=== PATIENT | female | born 1955 | race Caucasian/White ===

== ENCOUNTER 2018-01-09 15:34 | Inpatient (IN) | payer OTHER ==
[2018-01-09] MEDS ORDERED: NACL 0.9% 3 ML SYG IV (17:30)
[2018-01-09] MEDS ORDERED: morphine 2 MG INJ IV (17:30)
[2018-01-09] MEDS ORDERED: DOCUSATE SODIUM 100 MG CAP PO (17:30)
[2018-01-09] MEDS ORDERED: TOPIRAMATE 100 MG XX (17:30)
[2018-01-09] MEDS ORDERED: ONDANSETRON 4 MG INJ IV (17:30)
[2018-01-09] MEDS ORDERED: HYDROCODONE/APAP (5/325) TAB PO (17:30)
[2018-01-09] MEDS: INSULIN ASPART [NOVOLOG] 3 ML PEN SC (17:35)
[2018-01-09] MEDS ORDERED: DEXTROSE 50% 50 ML SYRINGE IV ×2 (18:00)
[2018-01-09] MEDS ORDERED: GLUCOSE GEL 15 GRAM TUBE PO ×2 (18:00)
[2018-01-09] MEDS ORDERED: GLUCOSE GEL 15 GRAM TUBE BUCCAL (18:00)
[2018-01-09] MEDS ORDERED: GLUCAGON 1 MG INJ IM (18:00)
[2018-01-09] MEDS: CEFTRIAXONE 1 GM/50 ML (PMX) 50 ML IVPB (18:08)
[2018-01-09] MEDS: SOD CHLORIDE 0.9% 1,000 ML IV (18:08)
[2018-01-09] MEDS: RISPERIDONE 1 MG TAB PO (20:39)
[2018-01-09] MEDS: RANITIDINE 150 MG TAB PO (20:39)
[2018-01-09] MEDS: GABAPENTIN 400 MG CAP PO (20:39)
[2018-01-09] MEDS: INSULIN GLARGINE [LANTus] (100 UNITS/ML) SYG SC (20:40)
[2018-01-09] MEDS ORDERED: GABAPENTIN 300 MG CAP PO (21:00)
[2018-01-09 22:10] LABS: ADD UMIC YES; UR ASCORBIC ACID NEGATIVE (NEGATIVE); UR BILIRUBIN (Dip) NEGATIVE (NEGATIVE); UR BLOOD (Dip) NEGATIVE (NEGATIVE); UR CLARITY CLEAR (CLEAR); UR COLOR STRAW (YELLOW); UR GLUCOSE (Dip) NEGATIVE (NEGATIVE); UR KETONES (Dip) NEGATIVE (NEGATIVE); UR LEUKOCYTE ESTERASE (Dip) TRACE Leu/ul (NEGATIVE); UR NITRITE (Dip) NEGATIVE (NEGATIVE); UR RBC 1 /HPF (0-5); UR SPECIFIC GRAVITY (Dip) 1.011 (1.003-1.030); UR TOTAL PROTEIN (Dip) NEGATIVE (NEGATIVE); UR UROBILINOGEN (Dip) NEGATIVE (NEGATIVE); UR WBC 9 /HPF (0-5)
[2018-01-09] MEDS: ACETAMINOPHEN 325 MG TAB PO (22:31)
[2018-01-09] MEDS: ZOLPIDEM 5 MG TAB PO (22:34)
[2018-01-10] MEDS: ACCU-CHEK XX (02:00)
[2018-01-10] MEDS: SOD CHLORIDE 0.9% 1,000 ML IV (03:10)
[2018-01-10] MEDS: PANTOPRAZOLE (EC) 40 MG TAB PO (05:22)
[2018-01-10 06:34] LABS: ADD MAN DIFF? NO
[2018-01-10 06:41] LABS: BASOPHILS % 0.9 % (0.0-2.0); EOSINOPHILS # 0.1 10^3/ul (0.0-0.5); EOSINOPHILS % 1.8 % (0.0-7.0); HEMATOCRIT 36.8 % (37.0-47.0); HEMOGLOBIN 11.4 g/dl (12.0-16.0); LYMPHOCYTES # 1.3 10^3/ul (0.8-2.9); LYMPHOCYTES % 28.8 % (15.0-51.0); MEAN CORPUSCULAR HEMOGLOBIN 24.2 pg (29.0-33.0); MEAN PLATELET VOLUME 11.5 fl (7.4-10.4); MONOCYTE # 0.4 10^3/ul (0.3-0.9); MONOCYTES % 8.4 % (0.0-11.0); NEUTROPHIL # 2.7 10^3/ul (1.6-7.5); NEUTROPHILS % 59.4 % (39.0-77.0); PLATELET COUNT 158 10^3/UL (140-415); RED BLOOD COUNT 4.72 10^6/ul (4.20-5.40); RED CELL DISTRIBUTION WIDTH 15.7 % (11.5-14.5)
[2018-01-10 06:41] LABS: WHITE BLOOD COUNT 4.5 10^3/ul (4.8-10.8)
[2018-01-10 07:00] LABS: ALANINE AMINOTRANSFERASE 16 IU/L (13-69); ALBUMIN 3.3 g/dl (3.3-4.9); ALBUMIN/GLOBULIN RATIO 1.13; ALKALINE PHOSPHATASE 62 IU/L (42-121); ANION GAP 14 (8-16); ASPARTATE AMINO TRANSFERASE 20 IU/L (15-46); BILIRUBIN,INDIRECT 0.5 mg/dl (0-1.1); BILIRUBIN,TOTAL 0.5 mg/dl (0.2-1.3); BLOOD UREA NITROGEN 14 mg/dl (7-20); CALCIUM 8.8 mg/dl (8.4-10.2); CARBON DIOXIDE 22 mmol/L (21-31); CHLORIDE 116 mmol/L (97-110); GLUCOSE 103 mg/dl (70-220); PHOSPHORUS 3.6 mg/dl (2.5-4.9); POTASSIUM 3.9 mmol/L (3.5-5.1); SODIUM 148 mmol/L (135-144); TOTAL PROTEIN 6.2 g/dl (6.1-8.1)
[2018-01-10 07:03] LABS: LACTIC ACID 1.4 mmol/L (0.5-2.0)
[2018-01-10 07:30] LABS: HEMOGLOBIN A1C 6.3 % (0-5.9)
[2018-01-10] MEDS: INSULIN ASPART [NOVOLOG] 3 ML PEN SC ×3 (08:12→17:31)
[2018-01-10] MEDS: SERTRALINE 100 MG TAB PO (08:13)
[2018-01-10] MEDS: traZODone 100 MG TAB PO (08:21)
[2018-01-10] MEDS: ARIPIPRAZOLE 5 MG TAB PO (08:21)
[2018-01-10] MEDS: FISH OIL 1,000 MG CAP PO (08:22)
[2018-01-10] MEDS: GABAPENTIN 400 MG CAP PO ×3 (08:22→20:20)
[2018-01-10] MEDS: MULTIVITAMINS/MINERALS TAB PO (08:23)
[2018-01-10] MEDS ORDERED: DHA PO (09:00)
[2018-01-10] MEDS ORDERED: EPA PO (09:00)
[2018-01-10] MEDS ORDERED: MULTIVITAMINS MIN PO (09:00)
[2018-01-10] MEDS ORDERED: FISH OIL PO (09:00)
[2018-01-10] MEDS ORDERED: GINKGO PO (09:00)
[2018-01-10] MEDS ORDERED: [UNRECOGNIZED DRUG - OTHER] PO (09:00)
[2018-01-10 11:09] LABS: IRON 48 ug/dl (35-150)
[2018-01-10 11:18] LABS: % IRON SATURATION 16 % SAT (22-52); TOTAL IRON BINDING CAPACITY 297 ug/dl (241-421)
[2018-01-10] MEDS: SOD CHLORIDE 0.45% 1,000 ML IV (12:21)
[2018-01-10 12:27] LABS: FERRITIN 36.7 ng/ml (11.1-264.0)
[2018-01-10] MEDS: CEFTRIAXONE 1 GM/50 ML (PMX) 50 ML IVPB (17:31)
[2018-01-10] MEDS: RANITIDINE 150 MG TAB PO (20:20)
[2018-01-10] MEDS: traZODone 50 MG TAB PO (20:20)
[2018-01-10] MEDS: RISPERIDONE 1 MG TAB PO (20:20)
[2018-01-10] MEDS: INSULIN GLARGINE [LANTus] (100 UNITS/ML) SYG SC (20:22)
[2018-01-11] MEDS: SOD CHLORIDE 0.45% 1,000 ML IV ×3 (01:37→12:39)
[2018-01-11] MEDS: ACCU-CHEK XX (01:48)
[2018-01-11 05:26] LABS: ADD MAN DIFF? NO
[2018-01-11 05:30] LABS: WHITE BLOOD COUNT 4.2 10^3/ul (4.8-10.8)
[2018-01-11 05:30] LABS: BASOPHIL # 0.1 10^3/ul (0.0-0.1); BASOPHILS % 1.2 % (0.0-2.0); EOSINOPHILS # 0.1 10^3/ul (0.0-0.5); EOSINOPHILS % 2.4 % (0.0-7.0); HEMATOCRIT 38.6 % (37.0-47.0); HEMOGLOBIN 11.9 g/dl (12.0-16.0); LYMPHOCYTES # 1.5 10^3/ul (0.8-2.9); LYMPHOCYTES % 35.8 % (15.0-51.0); MEAN CORPUSCULAR HEMOGLOBIN 24.1 pg (29.0-33.0); MEAN CORPUSCULAR HGB CONC 30.8 g/dl (32.0-37.0); MEAN CORPUSCULAR VOLUME 78.1 fl (82.0-101.0); MEAN PLATELET VOLUME 11.1 fl (7.4-10.4); MONOCYTE # 0.3 10^3/ul (0.3-0.9); MONOCYTES % 7.9 % (0.0-11.0); NEUTROPHIL # 2.2 10^3/ul (1.6-7.5); NEUTROPHILS % 52.2 % (39.0-77.0); PLATELET COUNT 176 10^3/UL (140-415); RED BLOOD COUNT 4.94 10^6/ul (4.20-5.40); RED CELL DISTRIBUTION WIDTH 15.5 % (11.5-14.5)
[2018-01-11] MEDS: PANTOPRAZOLE (EC) 40 MG TAB PO (05:45)
[2018-01-11] MEDS: LEVOTHYROXINE 50 MCG TAB PO (05:48)
[2018-01-11 06:20] LABS: ANION GAP 12 (8-16); BLOOD UREA NITROGEN 14 mg/dl (7-20); CALCIUM 9.3 mg/dl (8.4-10.2); CARBON DIOXIDE 24 mmol/L (21-31); CHLORIDE 112 mmol/L (97-110); CREATININE 0.62 mg/dl (0.44-1.00); GLUCOSE 111 mg/dl (70-220); POTASSIUM 3.6 mmol/L (3.5-5.1); SODIUM 144 mmol/L (135-144)
[2018-01-11] MEDS: MULTIVITAMINS/MINERALS TAB PO (08:28)
[2018-01-11] MEDS: GABAPENTIN 400 MG CAP PO ×2 (08:28→12:37)
[2018-01-11] MEDS: SERTRALINE 100 MG TAB PO (08:29)
[2018-01-11] MEDS: FISH OIL 1,000 MG CAP PO (08:29)
[2018-01-11] MEDS: ASPIRIN (EC) 81 MG TAB PO (08:29)
[2018-01-11] MEDS: INSULIN ASPART [NOVOLOG] 3 ML PEN SC ×2 (08:31→12:37)
[2018-01-11] MEDS: FERROUS SULFATE (EC) 325 MG TAB PO (12:37)
[2018-01-11] MEDS: CEFTRIAXONE 1 GM/50 ML (PMX) 50 ML IVPB (16:12)
[2018-01-11] MEDS ORDERED: morphine LIQ (10 MG/5 ML) CUP PO (17:30)
[2018-01-12] MEDS ORDERED: FERROUS SULFATE (EC) 325 MG TAB PO (09:00)
== END 2018-01-11 17:10 | disposition home or self-care (01) | DRG 872 ==
LOC: PP2 15:34
PROVIDERS: Internal Medicine
DX: A41.9 Sepsis, unspecified organism (principal); N39.0 Urinary tract infection, site not specified; E11.9 Type 2 diabetes mellitus without complications; I10 Essential (primary) hypertension; M54.5 Low back pain; B96.20 Unspecified Escherichia coli [E. coli] as the cause of diseases classified elsewhere; Z79.4 Long term (current) use of insulin; Z79.82 Long term (current) use of aspirin
CPT/HCPCS: 76775; 80048; 80053; 81001; 82728; 82962; 83036; 83540; 83605; 83735; 84100; 85025

== ENCOUNTER 2018-04-12 05:59 | Day surgery (SDC) | payer OTHER ==
[2018-04-12] MEDS ORDERED: PROPOFOL 20 ML ×2 (07:27→08:49)
== END 2018-04-12 14:53 | disposition home or self-care (01) ==
LOC: GIL 05:59
DX: Z12.11 Encounter for screening for malignant neoplasm of colon (principal); K29.00 Acute gastritis without bleeding; K64.8 Other hemorrhoids; K57.30 Diverticulosis of large intestine without perforation or abscess without bleeding; E11.9 Type 2 diabetes mellitus without complications; I10 Essential (primary) hypertension; E03.9 Hypothyroidism, unspecified; E78.5 Hyperlipidemia, unspecified
CPT/HCPCS: 43239; 82962; 88305; 88312

== ENCOUNTER 2018-07-10 06:19 | Emergency (ER) | payer OTHER ==
[2018-07-10 07:43] LABS: URINE BLOOD (Dip) POC Negative (NEGATIVE); URINE GLUCOSE (Dip) POC Negative (NEGATIVE); URINE KETONES (Dip) POC Negative (NEGATIVE); URINE LEUKOCYTE EST (Dip) POC Negative (NEGATIVE); URINE NITRITE (Dip) POC Negative (NEGATIVE); URINE TOTAL PROTEIN POC Negative (NEGATIVE)
[2018-07-10] MEDS: IBUPROFEN 800 MG TAB PO (07:47)
[2018-07-10 08:19] LABS: ADD MAN DIFF? NO
[2018-07-10 08:21] LABS: BASOPHIL # 0.1 10^3/ul (0.0-0.1); BASOPHILS % 0.7 % (0.0-2.0); EOSINOPHILS # 0.1 10^3/ul (0.0-0.5); EOSINOPHILS % 0.9 % (0.0-7.0); HEMATOCRIT 38.7 % (37.0-47.0); HEMOGLOBIN 12.1 g/dl (12.0-16.0); LYMPHOCYTES # 1.4 10^3/ul (0.8-2.9); LYMPHOCYTES % 20.8 % (15.0-51.0); MEAN CORPUSCULAR HEMOGLOBIN 24.3 pg (29.0-33.0); MEAN CORPUSCULAR HGB CONC 31.3 g/dl (32.0-37.0); MEAN CORPUSCULAR VOLUME 77.9 fl (82.0-101.0); MEAN PLATELET VOLUME 10.4 fl (7.4-10.4); MONOCYTE # 0.4 10^3/ul (0.3-0.9); MONOCYTES % 6.3 % (0.0-11.0); NEUTROPHIL # 4.9 10^3/ul (1.6-7.5); NEUTROPHILS % 70.9 % (39.0-77.0); PLATELET COUNT 180 10^3/UL (140-415); RED BLOOD COUNT 4.97 10^6/ul (4.20-5.40); RED CELL DISTRIBUTION WIDTH 15.9 % (11.5-14.5)
[2018-07-10 08:21] LABS: WHITE BLOOD COUNT 6.9 10^3/ul (4.8-10.8)
[2018-07-10 08:36] LABS: ALANINE AMINOTRANSFERASE 32 IU/L (13-69); ALBUMIN/GLOBULIN RATIO 1.14; ALKALINE PHOSPHATASE 88 IU/L (42-121); ANION GAP 8 (5-13); ASPARTATE AMINO TRANSFERASE 42 IU/L (15-46); BILIRUBIN,INDIRECT 0.1 mg/dl (0-1.1); BILIRUBIN,TOTAL 0.1 mg/dl (0.2-1.3); BLOOD UREA NITROGEN 14 mg/dl (7-20); CALCIUM 9.3 mg/dl (8.4-10.2); CARBON DIOXIDE 24 mmol/L (21-31); CHLORIDE 110 mmol/L (97-110); CREATININE 0.57 mg/dl (0.44-1.00); Estimated GFR > 60 mL/min (>60); GLUCOSE 128 mg/dl (70-220); LIPASE 144 U/L (23-300); POTASSIUM 4.3 mmol/L (3.5-5.1); SODIUM 142 mmol/L (135-144); TOTAL PROTEIN 7.5 g/dl (6.1-8.1)
== END 2018-07-10 09:34 | disposition home or self-care (01) ==
LOC: E/R 06:19
DX: N30.00 Acute cystitis without hematuria (principal); I10 Essential (primary) hypertension; Z79.82 Long term (current) use of aspirin; Z79.84 Long term (current) use of oral hypoglycemic drugs
CPT/HCPCS: 74176; 80053; 81003; 83690; 85025; 99284-25

== ENCOUNTER 2018-11-01 05:41 | Inpatient (IN) | payer OTHER ==
[2018-11-01] MEDS ORDERED: PROPOFOL 20 ML (07:30)
[2018-11-01] MEDS ORDERED: SUCCINYLCHOLINE CHLORIDE 100 MG/5 ML SYG IV (07:30)
[2018-11-01] MEDS ORDERED: ROCURONIUM 50 MG INJ (07:30)
[2018-11-01] MEDS ORDERED: GLYCOPYRROLATE 0.4 MG INJ ×2 (07:30→13:04)
[2018-11-01] MEDS ORDERED: MEPERIDINE 100 MG INJ (07:30)
[2018-11-01] MEDS ORDERED: LIDOCAINE 2% (SDV) 5 ML INJ (07:30)
[2018-11-01] MEDS ORDERED: NEOSTIGMINE 3 MG/3 ML SYRINGE (07:30)
[2018-11-01] MEDS: SOD CHLORIDE 0.9% 1,000 ML IV (07:35)
[2018-11-01] MEDS ORDERED: SEVOFLURANE 15 MIN (07:50)
[2018-11-01] MEDS ORDERED: DEXAMETHASONE 4 MG/ML 5 ML INJ (08:26)
[2018-11-01] MEDS ORDERED: CEFAZOLIN 1 GM INJ (08:26)
[2018-11-01] MEDS: POLYMYXIN/BACITRACIN 1L IRRIG (09:01)
[2018-11-01] MEDS: BUPIVACAINE 0.5% (SDV) 30 ML INJ (09:01)
[2018-11-01] MEDS: LIDOCAINE 1%/EPI 30 ML INJ (09:01)
[2018-11-01] MEDS: GELATIN SIZE 100 SPONGE (10:01)
[2018-11-01] MEDS: THROMBIN (BOVINE) 5,000 UNIT VIAL TP (10:01)
[2018-11-01] MEDS ORDERED: HYDROmorphONE 1 MG/5 ML IV SYRINGE IV (13:00)
[2018-11-01] MEDS ORDERED: METOCLOPRAMIDE 10 MG INJ IV (13:00)
[2018-11-01] MEDS ORDERED: DIPHENHYDRAMINE 50 MG INJ IV (13:00)
[2018-11-01] MEDS ORDERED: EPHEDrine 25 MG/5 ML SYG IV (13:00)
[2018-11-01] MEDS ORDERED: FENTAnyl 50 MCG/ML VIAL IV ×2 (13:00)
[2018-11-01] MEDS ORDERED: MIDAZOLAM 1 MG/ML 2 ML INJ IV (13:00)
[2018-11-01] MEDS ORDERED: LABETALOL HCL 20MG INJ IV (13:00)
[2018-11-01] MEDS ORDERED: hydrALAzine 20 MG INJ IV (13:00)
[2018-11-01] MEDS ORDERED: ONDANSETRON 4 MG INJ IV ×2 (13:00→13:30)
[2018-11-01] MEDS ORDERED: MEPERIDINE 25 MG INJ IV (13:00)
[2018-11-01] MEDS ORDERED: OXYCODONE/ACETAMINOPHEN (5/325) TAB PO ×2 (13:00)
[2018-11-01] MEDS ORDERED: ONDANSETRON 4 MG INJ (13:06)
[2018-11-01] MEDS ORDERED: NALOXONE (0.4 MG/ML) INJ IV (13:30)
[2018-11-01] MEDS ORDERED: BISACODYL 10 MG SUPP PR (13:30)
[2018-11-01] MEDS ORDERED: TOPIRAMATE 100 MG PO (13:30)
[2018-11-01] MEDS ORDERED: NON-FORMULARY/PATIENT OWN MED (Omeprazole* 40 MG) PO (13:30)
[2018-11-01] MEDS: LEVOTHYROXINE 50 MCG TAB PO (13:30)
[2018-11-01] MEDS ORDERED: NON-FORMULARY/PATIENT OWN MED (Simvastatin 10 MG) PO (13:30)
[2018-11-01] MEDS: CEFAZOLIN 1 GM/50 ML (PMX) 50 ML IVPB ×2 (14:14→20:49)
[2018-11-01] MEDS: HYDROmorphONE 1 MG/5 ML IV SYRINGE IV ×2 (14:14→14:58)
[2018-11-01] MEDS: FENTAnyl 50 MCG/ML VIAL IV ×2 (15:24→15:39)
[2018-11-01] MEDS: 1/2 NS + KCL 20 MEQ 1,000 ML IV (16:30)
[2018-11-01] MEDS: HYDROCODONE/APAP (5/325) TAB PO ×2 (16:50→20:59)
[2018-11-01] MEDS ORDERED: GLUCOSE GEL 15 GRAM TUBE BUCCAL (17:00)
[2018-11-01] MEDS ORDERED: GLUCAGON 1 MG INJ IM (17:00)
[2018-11-01] MEDS ORDERED: GLUCOSE GEL 15 GRAM TUBE PO ×2 (17:00)
[2018-11-01] MEDS ORDERED: DEXTROSE 50% 50 ML SYRINGE IV ×2 (17:00)
[2018-11-01] MEDS: INSULIN ASPART [NOVOLOG] 3 ML PEN SC ×2 (17:55→20:54)
[2018-11-01] MEDS: CYCLOBENZAPRINE 10 MG TAB PO (18:43)
[2018-11-01] MEDS: HYDROmorphONE 0.5 MG/0.5 ML SYG IV (19:30)
[2018-11-01] MEDS: DOCUSATE SODIUM 100 MG CAP PO (20:46)
[2018-11-01] MEDS: traZODone 100 MG TAB PO (20:47)
[2018-11-01] MEDS: GABAPENTIN 400 MG CAP PO (20:48)
[2018-11-01] MEDS: RANITIDINE 150 MG TAB PO (20:48)
[2018-11-01] MEDS: INSULIN GLARGINE [LANTus] (100 UNITS/ML) SYG SC (20:54)
[2018-11-01] MEDS ORDERED: NON-FORMULARY/PATIENT OWN MED (Sitagliptin* (Januvia*) 25 MG) PO (21:00)
[2018-11-02] MEDS: HYDROmorphONE 0.5 MG/0.5 ML SYG IV ×4 (00:25→18:40)
[2018-11-02] MEDS: ACCU-CHEK XX (01:30)
[2018-11-02] MEDS: 1/2 NS + KCL 20 MEQ 1,000 ML IV ×2 (03:11→13:46)
[2018-11-02] MEDS: CEFAZOLIN 1 GM/50 ML (PMX) 50 ML IVPB (04:31)
[2018-11-02] MEDS: HYDROCODONE/APAP (5/325) TAB PO ×4 (04:31→22:41)
[2018-11-02 05:18] LABS: ADD MAN DIFF? NO
[2018-11-02 05:20] LABS: WHITE BLOOD COUNT 8.7 10^3/ul (4.8-10.8)
[2018-11-02 05:20] LABS: BASOPHILS % 0.3 % (0.0-2.0); HEMOGLOBIN 11.9 g/dl (12.0-16.0); LYMPHOCYTES # 1.8 10^3/ul (0.8-2.9); LYMPHOCYTES % 20.4 % (15.0-51.0); MEAN CORPUSCULAR HEMOGLOBIN 24.2 pg (29.0-33.0); MEAN CORPUSCULAR HGB CONC 31.3 g/dl (32.0-37.0); MEAN CORPUSCULAR VOLUME 77.2 fl (82.0-101.0); MEAN PLATELET VOLUME 11.3 fl (7.4-10.4); MONOCYTE # 0.8 10^3/ul (0.3-0.9); MONOCYTES % 8.8 % (0.0-11.0); NEUTROPHIL # 6.1 10^3/ul (1.6-7.5); PLATELET COUNT 198 10^3/UL (140-415); RED BLOOD COUNT 4.92 10^6/ul (4.20-5.40); RED CELL DISTRIBUTION WIDTH 15.2 % (11.5-14.5)
[2018-11-02 05:41] LABS: ANION GAP 10 (5-13); BLOOD UREA NITROGEN 14 mg/dl (7-20); CALCIUM 8.8 mg/dl (8.4-10.2); CARBON DIOXIDE 25 mmol/L (21-31); CHLORIDE 110 mmol/L (97-110); CREATININE 0.68 mg/dl (0.44-1.00); Estimated GFR > 60 mL/min (>60); GLUCOSE 106 mg/dl (70-220); POTASSIUM 4.1 mmol/L (3.5-5.1); SODIUM 145 mmol/L (135-144)
[2018-11-02] MEDS ORDERED: PANTOPRAZOLE 40 MG INJ IV (06:00)
[2018-11-02 07:33] LABS: HEMOGLOBIN A1C 5.7 % (0-5.9)
[2018-11-02] MEDS: SERTRALINE 100 MG TAB PO (07:49)
[2018-11-02] MEDS: INSULIN ASPART [NOVOLOG] 3 ML PEN SC ×4 (07:50→21:00)
[2018-11-02] MEDS: PANTOPRAZOLE (EC) 40 MG TAB PO (08:45)
[2018-11-02] MEDS: GABAPENTIN 400 MG CAP PO ×3 (08:45→21:14)
[2018-11-02] MEDS: FISH OIL 1,000 MG CAP PO (08:45)
[2018-11-02] MEDS: MULTIVITAMINS/MINERALS TAB PO (08:45)
[2018-11-02] MEDS: LEVOTHYROXINE 25 MCG TAB PO (08:46)
[2018-11-02] MEDS: DOCUSATE SODIUM 100 MG CAP PO ×2 (08:46→21:14)
[2018-11-02] MEDS: traZODone 100 MG TAB PO (21:00)
[2018-11-02] MEDS: RANITIDINE 150 MG TAB PO (21:14)
[2018-11-02] MEDS: INSULIN GLARGINE [LANTus] (100 UNITS/ML) SYG SC (21:20)
[2018-11-02] MEDS: [UNRECOGNIZED DRUG - REMARK] XX (23:30)
[2018-11-02] MEDS: [UNRECOGNIZED DRUG - OTHER] XX (23:30)
[2018-11-03] MEDS: HYDROmorphONE 0.5 MG/0.5 ML SYG IV ×2 (01:10→04:48)
[2018-11-03] MEDS: ACCU-CHEK XX (02:00)
[2018-11-03 05:18] LABS: ADD MAN DIFF? NO
[2018-11-03 05:24] LABS: BASOPHIL # 0.1 10^3/ul (0.0-0.1); BASOPHILS % 0.6 % (0.0-2.0); EOSINOPHILS % 0.4 % (0.0-7.0); HEMATOCRIT 40.8 % (37.0-47.0); HEMOGLOBIN 12.5 g/dl (12.0-16.0); LYMPHOCYTES # 2.8 10^3/ul (0.8-2.9); LYMPHOCYTES % 25.7 % (15.0-51.0); MEAN CORPUSCULAR HGB CONC 30.6 g/dl (32.0-37.0); MEAN CORPUSCULAR VOLUME 78.5 fl (82.0-101.0); MEAN PLATELET VOLUME 11.6 fl (7.4-10.4); MONOCYTE # 0.7 10^3/ul (0.3-0.9); MONOCYTES % 6.6 % (0.0-11.0); NEUTROPHIL # 7.2 10^3/ul (1.6-7.5); NEUTROPHILS % 66.3 % (39.0-77.0); PLATELET COUNT 214 10^3/UL (140-415); RED CELL DISTRIBUTION WIDTH 15.2 % (11.5-14.5)
[2018-11-03 05:24] LABS: WHITE BLOOD COUNT 10.9 10^3/ul (4.8-10.8)
[2018-11-03 05:43] LABS: PHOSPHORUS 2.3 mg/dl (2.5-4.9)
[2018-11-03 05:43] LABS: CHOLESTEROL 184 mg/dl (100-200); HDL CHOLESTEROL 46 mg/dl (35-98); LDL CHOLESTEROL,CALCULATED 98 mg/dl; MAGNESIUM 1.9 mg/dl (1.7-2.5); TRIGLYCERIDES 201 mg/dl (0-149)
[2018-11-03 05:44] LABS: ANION GAP 11 (5-13); BLOOD UREA NITROGEN 13 mg/dl (7-20); CALCIUM 8.8 mg/dl (8.4-10.2); CARBON DIOXIDE 25 mmol/L (21-31); CHLORIDE 106 mmol/L (97-110); CREATININE 0.67 mg/dl (0.44-1.00); Estimated GFR > 60 mL/min (>60); GLUCOSE 169 mg/dl (70-220); POTASSIUM 4.2 mmol/L (3.5-5.1); SODIUM 142 mmol/L (135-144)
[2018-11-03] MEDS ORDERED: PANTOPRAZOLE (EC) 40 MG TAB PO (06:00)
[2018-11-03] MEDS: PANTOPRAZOLE (EC) 40 MG TAB PO (06:35)
[2018-11-03] MEDS: SERTRALINE 100 MG TAB PO ×2 (06:37→08:17)
[2018-11-03] MEDS: [UNRECOGNIZED DRUG - OTHER] XX (07:30)
[2018-11-03] MEDS: [UNRECOGNIZED DRUG - REMARK] XX (07:30)
[2018-11-03] MEDS: GABAPENTIN 400 MG CAP PO (07:58)
[2018-11-03] MEDS: HYDROCODONE/APAP (5/325) TAB PO (07:58)
[2018-11-03] MEDS: FISH OIL 1,000 MG CAP PO (07:59)
[2018-11-03] MEDS: DOCUSATE SODIUM 100 MG CAP PO (07:59)
[2018-11-03] MEDS: LEVOTHYROXINE 25 MCG TAB PO (07:59)
[2018-11-03] MEDS: CYCLOBENZAPRINE 10 MG TAB PO (07:59)
[2018-11-03] MEDS: INSULIN ASPART [NOVOLOG] 3 ML PEN SC (09:00)
[2018-11-03] MEDS: MULTIVITAMINS/MINERALS TAB PO (09:02)
== END 2018-11-03 10:35 | disposition home or self-care (01) | DRG 473 ==
LOC: REC 05:41 → MS1 16:10
PROVIDERS: Neurological Surgery
PROC: 0RG20A0 Fusion of 2 or more Cervical Vertebral Joints with Interbody Fusion Device, Anterior Approach, Anterior Column, Open Approach (ICD-10-PCS; principal; 2018-11-01 07:30)
PROC: 0RT30ZZ Resection of Cervical Vertebral Disc, Open Approach (ICD-10-PCS; 2018-11-01 07:30)
PROC: 4A11X4G Monitoring of Peripheral Nervous Electrical Activity, Intraoperative, External Approach (ICD-10-PCS; 2018-11-01 07:30)
DX: M50.01 Cervical disc disorder with myelopathy, high cervical region (principal); M48.02 Spinal stenosis, cervical region; E11.9 Type 2 diabetes mellitus without complications; E78.5 Hyperlipidemia, unspecified; E03.9 Hypothyroidism, unspecified; F41.9 Anxiety disorder, unspecified; G47.9 Sleep disorder, unspecified; I10 Essential (primary) hypertension; K21.9 Gastro-esophageal reflux disease without esophagitis; Z79.84 Long term (current) use of oral hypoglycemic drugs
CPT/HCPCS: 72050; 80048; 80061; 82962; 83036; 83735; 84100; 85025; 86850; 86900; 86901; 87086; 97116; 97161